=== PATIENT | female | born 1945 | race Caucasian/White ===

== ENCOUNTER → 2018-04-13 | Day surgery (SDC) | payer MEDICARE ==
--- NOTE | 2018-04-11 12:41 | Diagnostic Imaging Report ---
PROCEDURE: X-RAY CHEST, TWO VIEWS COMPARISON: None. INDICATIONS: PRE OPERATIVE CHEST X-RAY FOR UROLOGY FINDINGS: No focal airspace consolidation, pleural effusion, or pneumothorax. Left subclavian approach implantable cardiac device body projects over the left lateral chest wall. Leads project over the right atrium and right ventricle. Aortic valve prosthesis. Normal heart size. Tortuosity and atherosclerotic calcification of the thoracic aorta. No pulmonary edema. No acute osseous abnormality. CONCLUSION: No acute cardiopulmonary abnormality. Dictated by: Guanaco Tobar M.D. on 04/11/2018 at 12:43 Electronically approved by: Guanaco Tobar M.D. on 04/11/2018 at 12:43
[~2018-04-13] MED LIST: ADVIL100 MG; ASPIRIN81 MG; CEFTRIAXONE SOD 1 GM VIAL ONE; CLOPIDOGREL75 MG PO; CYMBALTA30 MG; DEXAMETHASONE SOD PHOS INJ 4 MG/ML VIAL ONE; FISH OIL 1,0001 EAC2; GENERLAC10 GM/15 M; IOPAMIDOL 610MG/1ML 300 MG/ML VIAL IV ONE; LIDOCAINE HCL 2% LOCAL INJ 5 ML SDV VIAL INJ ONE; ONDANSETRON HCL INJ 2 MG/ML VIAL ONE; PROPOFOL IV EMULSION 10 MG/ML 20 ML VIAL ONE; SEVOFLURANE INHAL SOLN 250 ML PEN BTL ONE; SINEMET 10-1001 EACH
--- OUTSIDE RECORDS SUMMARY | 2018-04-13 06:04 | XMS REPORT | Clinical Summary ---
Author Author KARIS [facility] Address Unknown Phone Unavailable Care Team Providers Care Order Runner Name Role Phone PCP Unavailable Allergies Active Allergy Reactions Severity Noted Date Comments Sulfa (Sulfonamide 10/18/2017 Antibiotics) Current Medications Prescription Sig. Disp. Refills Start End Date Status Date DULoxetine (CYMBALTA) 30 Take 30 mg by mouth Active MG capsule daily. bisacodyl (DULCOLAX) 5 mg Take 5 mg by mouth daily Active EC tablet as needed for Constipation. clopidogrel (PLAVIX) 75 Take 1 tablet (75 mg 30 tablet 3 12/30/19 Active mg tablet total) by mouth daily. 18 aspirin 81 MG chewable Take 1 tablet (81 mg 30 tablet 3 12/30/19 Active tablet total) by mouth daily. 18 bethanechol (URECHOLINE) Take 1 tablet (10 mg 0 01/09/01/09/20 Active 10 MG tablet total) by mouth 3 (three) 18 19 times daily. carbidopa-levodopa Take 1 tablet by mouth 3 0 01/09/20 20 Active (SINEMET) 25-100 mg per (three) times daily. 18 19 tablet metoprolol (LOPRESSOR) 25 Take 0.5 tablets (12.5 mg 0 01/09/ Active MG tablet total) by mouth daily. 18 19 tamsulosin (FLOMAX) 0.4 Take 1 capsule (0.4 mg 0 01/10/20 Active mg Cp24 24 hr capsule total) by mouth nightly. 18 carbidopa-levodopa Take 2 tablets by mouth 3 01/09/20 Discontin (PARCOPA) 25-100 mg per (three) times daily . 18 ued disintegrating tablet metoprolol (LOPRESSOR) 25 Take 0.5 tablets (12.5 mg 15 tablet 3 01/09/20 Discontin MG tablet total) by mouth 2 (two) 18 18 ued times daily. minocycline Take 1 capsule (100 mg 20 capsule 0 12/30/19 01/10/20 Discontin (MINOCIN,DYNACIN) 100 MG total) by mouth every 12 18 18 ued capsule (twelve) hours for 10 days. tamsulosin (FLOMAX) 0.4 Take 1 capsule (0.4 mg 0 01/09/20 01/10/20 Discontin mg Cp24 24 hr capsule total) by mouth daily. 18 18 ued Active Problems Problem Noted Date Aortic stenosis 12/29/2017 Essential hypertension 12/29/2017 Severe aortic stenosis Pacemaker Parkinson disease (HCC) Hypertension Encounters Date Type Specialty Care Team Description 01/15/2018 Office Visit Cardiology Ned Jacob, Post- operative state (Primary Dx) 12/29/2017 [facility] Cardiology Bradley Wright Essential hypertension - Encounter MD Merritt 01/10/2018 Rod Iqbal MD 12/29/2017 Orders Only General Internal Medicine 12/29/2017 Procedure Pass 12/29/2017 Surgery Bradley Wright TAVR / CHULA MCR - IP MD Merritt PROC ONLY 12/28/2017 Anesthesia Ventura Gaytan, Event AA 12/06/2017 Procedure Pass 11/02/2017 [facility] Cardiology Claudio Rendon MD Severe aortic stenosis Encounter (Primary Dx);Aortic valve insufficiency, etiology of cardiac valve disease unspecified;Dyspnea, unspecified type;Syncope and collapse;Pacemaker;[place] son disease (HCC) 11/02/2017 [facility] Radiology Claudio Rendon MD Aortic valve Encounter insufficiency, etiology of cardiac valve disease unspecified;Dyspnea, unspecified type;Syncope and collapse 11/02/2017 Hospital Radiology Claudio Rendon MD Aortic valve Encounter insufficiency, etiology of cardiac valve disease unspecified;Dyspnea, unspecified type;Syncope and collapse 11/01/2017 Outside Orders Central Scheduling Claudio Rendon MD Aortic valve insufficiency, etiology of cardiac valve disease unspecified (Primary Dx);Dyspnea, unspecified type;Syncope and collapse 10/19/2017 Office Visit Cardiology Juany Ventura, Nonrheumatic aortic valve stenosis (Primary Dx) 10/18/2017 Office Visit Cardiology Ned Jacob, Severe aortic stenosis;Pacemaker;[place] son disease (HCC);Essential hypertension after 04/12/2017 Immunizations Name Dates Previously Given Next Due Influenza High Dose 01/10/2018 Preservative Free IM Pneumococcal 01/10/2018 Polysaccharide (Pneumovax) Family History Medical History Relation Name Comments Stroke Mother Relation Name Status Comments Mother Social History Tobacco Use Types Packs/Day Years Used Date Never Smoker Smokeless Tobacco: Never Used Alcohol Use Drinks/Week oz/Week Comments No Sex Assigned at Date Recorded Not on file Last Filed Vital Signs Vital Sign Reading Time Taken Blood Pressure 122/57 01/15/2018 12:00 PM [employer]CH[employer] Pulse 85 01/15/2018 12:00 PM [employer] Temperature 36.3 C (97.4 F) 01/15/2018 12:00 PM [employer] Respiratory Rate 16 01/15/2018 12:00 PM [employer] Oxygen Saturation 99% 01/15/2018 12:00 PM [employer] Inhaled Oxygen - - Concentration Weight 93 kg (205 lb) 01/15/2018 12:00 PM [employer] Height 160 cm (5' 2.99") 01/15/2018 12:00 PM [employer] Body Mass Index 36.33 01/15/2018 12:00 PM [employer] Plan of Treatment Health Maintenance Due Date Last Done Comments INFLUENZA VACCINE 08/20/2018 01/10/2018 Implants Implanted Type Area Federal Law Clerk Device Expiration Model / Identifier Date Serial / Lot Mitchell Mil 3 Transcatheter Valves N/A: Aorta MITCHELL 08/25/2019 [id number] / Heart Valve [employer] [id number] / Implanted: Qty: 1 on 12/29/2017 by Bradley Wright MD Procedures Procedure Name Priority Date/Time Associated Diagnosis Comments TAVR / CHULA MCR - IP 12/29/2017 I35.1 PROC ONLY 7:30 AM [employer]RO[employer]CH[employer]IC Case Notes (1) CASE REQUEST, 6T OP. Special Needs FIRST CASE REQUEST after 04/12/2017 Results * RHYTHM STRIP - SCAN (01/25/2018 3:22 PM) Only the most recent of 3 results within the time period is included. * CBC with platelet count + automated diff (01/10/2018 5:35 AM) Only the most recent of 3 results within the time period is included. Component Value Ref Range WBC 7.9 3.5 - 10.5 K/ L RBC 3.47 (L) 3.93 - 5.22 M/ L Hemoglobin 10.5 (L) 11.2 - 15.7 GM/DL Hematocrit 32.3 (L) 34.1 - 44.9 % MCV 93.1 79.4 - 94.8 fL MCH 30.3 25.6 - 32.2 pg MCHC 32.5 32.2 - 35.5 GM/DL RDW 13.9 11.7 - 14.4 % Platelets 143 (L) 150 - 450 K/CU MM MPV 10.7 9.4 - 12.3 fL nRBC 0 0 - 0 /100 WBC % Neutros 57 % % Lymphs 31 % % Monos 8 % % Eos 4 % % Baso 1 % # Neutros 4.50 1.56 - 6.13 K/ L # Lymphs 2.44 1.18 - 3.74 K/ L # Monos 0.61 (H) 0.24 - 0.36 K/ L # Eos 0.28 0.04 - 0.36 K/ L # Baso 0.08 0.01 - 0.08 K/ L Immature 0 0 - 1 % Granulocytes-Relative Specimen Performing Laboratory Blood - Arm, [place] [address] * CBC with platelet count + automated diff (01/10/2018 5:35 AM) Only the most recent of 3 results within the time period is included. Specimen Performing Laboratory Blood Narrative The following orders were created for panel order CBC with platelet count + automated diff. Procedure Abnormality Status --------- - ------ CBC with platelet count ...[[id number]]AbnormalFinal result Please view results for these tests on the individual orders. * Basic Metabolic Panel (01/10/2018 5:35 AM) Only the most recent of 5 results within the time period is included. Component Value Ref Range Sodium 140 136 - 145 meq/L Potassium 4.1 3.5 - 5.1 meq/L Chloride 109 (H) 98 - 107 meq/L CO2 23 22 - 29 meq/L BUN 21 7 - 21 mg/dL Creatinine 0.73 0.57 - 1.25 mg/dL Glucose 90 70 - 105 mg/dL Calcium 9.2 8.4 - 10.2 mg/dL EGFR 78Comment: ESTIMATED GFR IS NOT ACCURATE mL/min/1.73 sq m CREATININE CLEARANCE IN PREDICTING GLOMERULAR FILTRATION RATE. ESTIMATED GFR IS NOT APPLICABLE FOR DIALYSIS PATIENTS. Specimen Performing Laboratory Blood - Arm, Right [address] [address] * POC-Glucose meter (01/08/2018 11:48 AM) Component Value Ref Range POC-Glucose Meter 108Comment: TESTED AT [address] 70 - 110 mg/[place] [address] Specimen Performing Laboratory Blood [address] [address] * CARDIAC CATH REPORT - SCAN (01/03/2018 8:30 PM) * ECHOCARDIOGRAM REPORT - SCAN (01/03/2018 7:20 AM) Only the most recent of 3 results within the time period is included. * Hemoglobin A1c (01/02/2018 6:06 PM) Component Value Ref Range Hemoglobin A1C 4.9 4.3 - 6.1 % Specimen Performing Laboratory Blood - Arm, Left [address] [address] * ECG 12 lead (01/01/2018 4:02 PM) Only the most recent of 2 results within the time period is included. Specimen Performing Laboratory GE MUSE Narrative Ventricular Rate 86 BPM Atrial Rate 86 BPM P-R Interval 172 ms QRS Duration 80 ms Q-T Interval 356 ms QTC Calculation(Bazett) 426 ms P [place] 29 degrees R [place] 0 degrees T [place] 17 degrees Normal sinus rhythm Normal ECG When compared with ECG of 29-Dec-2017 No significant changes Confirmed by Demetrice CID BASANT ([id number]) on 01/02/2018 4:50:27 PM Procedure Note Interface, External Ris In - 01/02/2018 4:50 PM [employer]RO[employer]CH[employer]IC Ventricular Rate 86 BPM Atrial Rate 86 BPM P-R Interval 172 ms QRS Duration 80 ms Q-T Interval 356 ms QTC Calculation(Bazett) 426 ms P [place] 29 degrees R [place] 0 degrees T [place] 17 degrees Normal sinus rhythm Normal ECG When compared with ECG of 29-Dec-2017 No significant changes Confirmed by Demetrice CID BASANT ([id number]) on 01/02/2018 4:50:27 PM * CBC (Hemogram only) (01/01/2018 4:52 AM) Only the most recent of 3 results within the time period is included. Component Value Ref Range WBC 8.6 3.5 - 10.5 K/ L RBC 3.26 (L) 3.93 - 5.22 M/ L Hemoglobin 10.1 (L) 11.2 - 15.7 GM/DL Hematocrit 30.2 (L) 34.1 - 44.9 % MCV 92.6 79.4 - 94.8 fL MCH 31.0 25.6 - 32.2 pg MCHC 33.4 32.2 - 35.5 GM/DL RDW 13.4 11.7 - 14.4 % Platelets 85 (L) 150 - 450 K/CU MM MPV 10.5 9.4 - 12.3 fL nRBC 0 0 - 0 /100 WBC Specimen Performing Laboratory Blood - Arm, [place] [address] * TRANSFUSION SERVICE REPORT - SCAN (12/30/2017 5:41 PM) * Transthoracic 2D echo w/ doppler (cw/pw/color) (12/30/2017 11:04 AM) Component Value Ref Range Ejection Fraction Specimen Performing Laboratory SLE ECHO HEARTLAB MKCKESSON CPACS Narrative Transthoracic Echocardiography Report (TTE) Demographics Patient NameCINDY LANGLEY Date of Study12/30/2017 PRAVEEN Gender Female Visit [id number] Race Number [id number] Number Date of 1945 Referring Frederick Boothe Age 72 year(s) 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 Clinical History HTN PACEMAKER SOB ANGINA POST AVR HGB 11.2 HCT 34.0 % Height: 63 inches Weight: 93.44 kg (206 lbs) BSA: 1.96 m^2 BMI: 36.49 kg/m^2 HR: 94 bpm BP: 127/61 mmHg Summary 1. The prosthetic AoV appears well-seated with normal function by Doppler. Prosthetic AoV systolic gradients are normal: peak/mean 17.6/ 9.35 mmHg. . 2. All of the LV segments contract normally Estimated LVEF by qualitative assessment is normal (>60%) . 3. No pericardial effusion is visualized Previous Study No prior exam available for comparison. Signature Findings Left Ventricle Mild concentric LV hypertrophy. The left ventricle is chamber size (by PSLAX dimension) is normal (female - LVIDd 3.8-5.2cm) . All of the LV segments contract normally . Septal motion is abnormal, likely related to prior cardiac surgery . Global LV systolic function normal . Estimated LVEF by qualitative assessment is normal (>60%) . Grade 1 diastolic dysfunction ( impaired relaxation and low-normal LA pressure). Left AtriumLA size is mildly enlarged (35-41 ml/m2) . Right VentricleThe right ventricular chamber size and systolic function are within normal limits. RV pacing wire is visualized . Right Atrium RA cavity size is normal . RA pacing wire is visualized . Aortic Valve A percutaneous (TAVR) biologic AoV prosthesis is visualized . The prosthetic AoV appears well- seated with normal function by Doppler. AoV dimensionless obstructive index (DOI)) is 0.84 . Prosthetic AoV systolic gradients are normal: peak/mean 17.6/ 9.35 mmHg. . A trace of aortic regurgitation. Mitral Valve Mild MV leaflet thickening. Tricuspid ValveA trace of tricuspid regurgitation. Estimated peak systolic PA pressure is 30-35 mmHg . Pulmonic Valve Normal PV structure and function. AortaAortic root size (SInus of Valsalva diameter) is normal . Proximal ascending aorta size is normal . PericardiumNo pericardial effusion is visualized. IVC/SVC/PA/PV/PleuralThe estimated RA pressure by IVC dynamics 5-10mmHg . Chambers/Structures Left Atrium LA Volume: 69.26 ml LA Area: 20.86 cm^2 LA Vol. Index: 35 ml/m^2 Left Ventricle LVIDd: 3.87 cm LV Septum Diastolic: 1.41 cm LV PW Diastolic: 1.27 cm LVOT Diameter: 1.91 cm Right Ventricle TAPSE: 2.3 cm Aorta Ao Root S of [place].: 2.98 cmAscending Aorta: 2.98 cm Doppler/Quantitative Measurements Mitral Valve MV Peak E-Wave: 0.83 m/sMV Peak A-Wave: 1.09 m/s E/A Ratio: 0.76 Peak Gradient: 2.77 mmHg Deceleration Time: 235 msec MV Malcom. Peak: Aortic Valve Peak Velocity: 2.1 m/s Mean Velocity: 1.44 m/s Peak Gradient: 17.6 mmHg Mean Gradient: 9.35 mmHg AV Area (continuity): 2.42 cm^2 AV VTI: 37.49 cm AV DVI: 0.84 LVOT Peak Velocity: 1.61 m/sPeak Gradient: 10.36 mmHg Mean Velocity: 1.13 m/sMean Gradient: 6.37 mmHg LVOT Diameter: 1.91 cm LVOT VTI: 31.63 cm LVOT Area: 2.87 cm^2 LVOT SV:90.58 ml LVOT CO: 8.51 l/minLVOT CI: 4.34 l/min/m^2 Tricuspid Valve TR Velocity: 2.5 m/s TR Gradient: 24.91 mmHg Procedure Note Interface, External Ris In - 12/31/2017 4:27 PM [employer]RO[employer]CH[employer]IC Transthoracic Echocardiography Report (TTE) Demographics Patient Name CINDY LANGLEY Date of Study 12/30/2017 PRAVEEN Gender Female Visit Number [id number] Race Room Number C626 Number Date of 1945 Referring Physician ASPEN Boothe Age 72 year(s) [employer] Welding Machine Operator Rosie Reno Roofing Foreman Ellen Fisher MD Procedure Type of Study TTE procedure:2DECHO W DOPPLER(CW/PW/COLOR) (KYLE) Indications:Initial post operative evaluation of prosthetic valve. Clinical History HTN PACEMAKER SOB ANGINA POST AVR HGB 11.2 HCT 34.0 % Height: 63 inches Weight: 93.44 kg (206 lbs) BSA: 1.96 m^2 BMI: 36.49 kg/m^2 HR: 94 bpm BP: 127/61 mmHg Summary 1. The prosthetic AoV appears well-seated with normal function by Doppler. Prosthetic AoV systolic gradients are normal: peak/mean 17.6/ 9.35 mmHg. . 2. All of the LV segments contract normally Estimated LVEF by qualitative assessment is normal (>60%) . 3. No pericardial effusion is visualized Previous Study No prior exam available for comparison. Signature Findings Left Ventricle Mild concentric LV hypertrophy. The left ventricle is chamber size (by PSLAX dimension) is normal (female - LVIDd 3.8-5.2cm) . All of the LV segments contract normally . Septal motion is abnormal, likely related to prior cardiac surgery . Global LV systolic function normal . Estimated LVEF by qualitative assessment is normal (>60%) . Grade 1 diastolic dysfunction (impaired relaxation and low-normal LA pressure). Left Atrium LA size is mildly enlarged (35-41 ml/m2) . Right Ventricle The right ventricular chamber size and systolic function are within normal limits. RV pacing wire is visualized . Right Atrium RA cavity size is normal . RA pacing wire is visualized . Aortic Valve A percutaneous (TAVR) biologic AoV prosthesis is visualized . The prosthetic AoV appears well-seated with normal function by Doppler. AoV dimensionless obstructive index (DOI)) is 0.84 . Prosthetic AoV systolic gradients are normal: peak/mean 17.6/ 9.35 mmHg. . A trace of aortic regurgitation. Mitral Valve Mild MV leaflet thickening. Tricuspid Valve A trace of tricuspid regurgitation. Estimated peak systolic PA pressure is 30-35 mmHg . Pulmonic Valve Normal PV structure and function. Aorta Aortic root size (SInus of Valsalva diameter) is normal . Proximal ascending aorta size is normal . Pericardium No pericardial effusion is visualized. IVC/SVC/PA/PV/Pleural The estimated RA pressure by IVC dynamics 5-10mmHg . Chambers/Structures Left Atrium LA Volume: 69.26 ml LA Area: 20.86 cm^2 LA Vol. Index: 35 ml/m^2 Left Ventricle LVIDd: 3.87 cm LV Septum Diastolic: 1.41 cm LV PW Diastolic: 1.27 cm LVOT Diameter: 1.91 cm Right Ventricle TAPSE: 2.3 cm Aorta Ao Root S of [place].: 2.98 cm Ascending Aorta: 2.98 cm Doppler/Quantitative Measurements Mitral Valve MV Peak E-Wave: 0.83 m/s MV Peak A-Wave: 1.09 m/s E/A Ratio: 0.76 Peak Gradient: 2.77 mmHg Deceleration Time: 235 msec MV Malcom. Peak: Aortic Valve Peak Velocity: 2.1 m/s Mean Velocity: 1.44 m/s Peak Gradient: 17.6 mmHg Mean Gradient: 9.35 mmHg AV Area (continuity): 2.42 cm^2 AV VTI: 37.49 cm AV DVI: 0.84 LVOT Peak Velocity: 1.61 m/s Peak Gradient: 10.36 mmHg Mean Velocity: 1.13 m/s Mean Gradient: 6.37 mmHg LVOT Diameter: 1.91 cm LVOT VTI: 31.63 cm LVOT Area: 2.87 cm^2 LVOT SV:90.58 ml LVOT CO: 8.51 l/min LVOT CI: 4.34 l/min/m^2 Tricuspid Valve TR Velocity: 2.5 m/s TR Gradient: 24.91 mmHg * POC ACTIVATED CLOTTING TIME (12/29/2017 12:57 PM) Only the most recent of 2 results within the time period is included. Component Value Ref Range Activated Clotting Time 109Comment: TESTED AT [facility] [address] [facility] [place] [address] Specimen Performing Laboratory Blood [facility] [address] [address] * Prepare RBC (12/29/2017 12:56 PM) Component Value Ref Range CROSSMATCH COMPATIBLE Unit ABO O Pos UNIT NUMBER [id number] Status RETURNED FROM ISSUE Blood Bank Product RED BLOOD CELLS PRODUCT CODE M7920Q16 CROSSMATCH COMPATIBLE Unit ABO O Pos UNIT NUMBER [id number] Status RETURNED FROM ISSUE Blood Bank Product RED BLOOD CELLS PRODUCT CODE [id number] CROSSMATCH COMPATIBLE Unit ABO O Pos UNIT NUMBER [id number] Status RETURNED FROM ISSUE Blood Bank Product RED BLOOD CELLS PRODUCT CODE [id number] CROSSMATCH COMPATIBLE Unit ABO O Pos UNIT NUMBER [id number] Status RETURNED FROM ISSUE Blood Bank Product RED BLOOD CELLS PRODUCT CODE [id number] Specimen Performing Laboratory [facility] [place] * Transesophageal echo (12/29/2017 8:05 AM) Only the most recent of 2 results within the time period is included. Component Value Ref Range Ejection Fraction Specimen Performing Laboratory SLE ECHO HEARTLAB MKCKESSON CPACS Narrative Transesophageal Echocardiography Report (JORDAN) Demographics Patient Name Giovanny LANGLEY of Study 12/29/2017 PRAVEEN [id number] Female Visit Number [id number] [id number] Room Number C626 Number Date of Birth1945Referring Physician Bradley Wright MD Age72 year(s)[employer] Welding Machine Operator Physician CHATA Colin Fellow Radha Cole Procedure Type of Study JORDAN procedure:TRANSESOPHAGEAL ECHO Indications:TAVR. Clinical History ANGINA AT REST,BRADYCARDIA,JERRY,HTN,PACEMAKER,PARKINSON DISEASE,,SOB Height: 63 inches Weight: 93.44 kg (206 lbs) BSA: 1.96 m^2 BMI: 36.49 kg/m^2 HR: 71 bpm BP: 132/62 mmHg Procedure Informed Consent Anesthesia consent obtained. JORDAN procedure notes The patient was counseled and informed consent was obtained. Topical and intravenous anesthesia was administered by anesthesia The esophagus was intubated without difficulty by anesthesia. The probe was passed and all standard echocardiographic views were obtained. The patient tolerated the procedure well.. Mallampati Score: 3. Anesthesia History Findings III : A pt with severe systemic disease that limits activity (history of angina pectoris, COPD, prior FL, CHF).. - See anesthesia record Summary Intra procedural JORDAN to guide TAVR procedure. Pre procedural JORDAN 1. Severe aortic stenosis with limited excursion. Peak gradient of 75 mmHg and mean of 38 mmHg. 2. Mild to moderate concentric LV hypertrophy. Normal overall left ventricular systolic function. LA size is enlarged . The right ventricular chamber size and systolic function are within normal limits. 3. Mild tricuspid regurgitation. Mild mitral regurgitation. Intra & Post Procedural JORDAN 1. Successfully deployed Mitchell Valve with no significant valvar or paravalvar regurgitation. The left coronary blood flow is preserved. 2. Stable right and left ventricular systolic function. 3. No evidence of pericardial effusion. Previous Study Compared to prior study dated 11/02/2017, there is no significant change (pre TAVR study). Signature Findings Rhythm/BPRegular sinus rhythm during the exam. Interventional JORDAN (cpt 08690) for guidance of percutaneous intracardiac procedure. 3D imaging (cpt 29408) rendering with interpretation was performed. Left Mild to moderate concentric LV hypertrophy. Normal overall Ventricleleft ventricular systolic function. Left AtriumLA size is enlarged . RightThe right ventricular chamber size and systolic function are Ventriclewithin normal limits. Right Atrium RA size is normal. Atrial Normal interatrial septum by available views. Septum Aortic Valve There is severe aortic stenosis as previously described. Peak gradient of 75 mmHg and mean of 38 mmHg. JORDAN guidance for TAVR Mitchell Valve deployment and assessment. TAVR valve is well seated in good position. With no significant valvar or paravalvar regurgitation. The left coronary blood flow is preserved. 3D imaging and reconstruction of the prosthetic aortic valve performed. Mitral Valve [id number] MV leaflet thickening. Mild mitral regurgitation. TricuspidTV structure is normal. ValveMild tricuspid regurgitation. Pulmonic PV is not well visualized. Valve AortaAortic root size (SInus of Valsalva diameter) is mildly dilated . PericardiumNo pericardial effusion is visualized. Chambers/Structures Left Ventricle LVOT Diameter: 2 cm Doppler/Quantitative Measurements Aortic Valve Peak Velocity: 4.36 m/sMean Velocity: 2.81 m/s Peak Gradient: 75.95 mmHgMean Gradient: 39.26 mmHg AV Area (continuity): 0.41 cm^2 AV VTI: 140.81 cm AV DVI: 0.13 LVOT Peak Velocity: 0.67 m/s Peak Gradient: 1.77 mmHg Mean Velocity: 0.49 m/s Mean Gradient: 1.06 mmHg LVOT Diameter: 2 cm LVOT VTI: 18.56 cm LVOT Area: 3.14 cm^2LVOT SV:58.28 ml LVOT CO: 4.14 l/min LVOT CI: 2.11 l/min/m^2 Procedure Note Interface, External Ris In - 01/02/2018 7:04 PM [employer]ILROAD TR[employer] MECHANIC Transesophageal Echocardiography Report (JORDAN) Demographics Patient Name CINDY LANGLEY Date of Study 12/29/2017 PRAVEEN Gender Female Visit Number [id number] Race Room Number C626 Number Date of 1945 Referring Physician Bradley Wright MD Age 72 year(s) [employer] Welding Machine Operator Interpreting Physician CHATA Heller Fellow Radha Cole Procedure Type of Study JORDAN procedure:TRANSESOPHAGEAL ECHO Indications:TAVR. Clinical History ANGINA AT REST,BRADYCARDIA,JERRY,HTN,PACEMAKER,PARKINSON DISEASE,,SOB Height: 63 inches Weight: 93.44 kg (206 lbs) BSA: 1.96 m^2 BMI: 36.49 kg/m^2 HR: 71 bpm BP: 132/62 mmHg Procedure Informed Consent Anesthesia consent obtained. JORDAN procedure notes The patient was counseled and informed consent was obtained. Topical and intravenous anesthesia was administered by anesthesia The esophagus was intubated without difficulty by anesthesia. The probe was passed and all standard echocardiographic views were obtained. The patient tolerated the procedure well.. Mallampati Score: 3. Anesthesia History Findings III : A pt with severe systemic disease that limits activity (history of angina pectoris, COPD, prior FL, CHF).. - See anesthesia record Summary Intra procedural JORDAN to guide TAVR procedure. Pre procedural JORDAN 1. Severe aortic stenosis with limited excursion. Peak gradient of 75 mmHg and mean of 38 mmHg. 2. Mild to moderate concentric LV hypertrophy. Normal overall left ventricular systolic function. LA size is enlarged . The right ventricular chamber size and systolic function are within normal limits. 3. Mild tricuspid regurgitation. Mild mitral regurgitation. Intra & Post Procedural JORDAN 1. Successfully deployed Mitchell Valve with no significant valvar or paravalvar regurgitation. The left coronary blood flow is preserved. 2. Stable right and left ventricular systolic function. 3. No evidence of pericardial effusion. Previous Study Compared to prior study dated 11/02/2017, there is no significant change (pre TAVR study). Signature Findings Rhythm/BP Regular sinus rhythm during the exam. Interventional JORDAN (cpt 10861) for guidance of percutaneous intracardiac procedure. 3D imaging (cpt 99654) rendering with interpretation was performed. Left Mild to moderate concentric LV hypertrophy. Normal overall Ventricle left ventricular systolic function. Left Atrium LA size is enlarged . Right The right ventricular chamber size and systolic function are Ventricle within normal limits. Right Atrium RA size is normal. Atrial Normal interatrial septum by available views. Septum Aortic Valve There is severe aortic stenosis as previously described. Peak gradient of 75 mmHg and mean of 38 mmHg. JORDAN guidance for TAVR Mitchell Valve deployment and assessment. TAVR valve is well seated in good position. With no significant valvar or paravalvar regurgitation. The left coronary blood flow is preserved. 3D imaging and reconstruction of the prosthetic aortic valve performed. Mitral Valve [id number] MV leaflet thickening. Mild mitral regurgitation. Tricuspid TV structure is normal. Valve Mild tricuspid regurgitation. Pulmonic PV is not well visualized. Valve Aorta Aortic root size (SInus of Valsalva diameter) is mildly dilated . Pericardium No pericardial effusion is visualized. Chambers/Structures Left Ventricle LVOT Diameter: 2 cm Doppler/Quantitative Measurements Aortic Valve Peak Velocity: 4.36 m/s Mean Velocity: 2.81 m/s Peak Gradient: 75.95 mmHg Mean Gradient: 39.26 mmHg AV Area (continuity): 0.41 cm^2 AV VTI: 140.81 cm AV DVI: 0.13 LVOT Peak Velocity: 0.67 m/s Peak Gradient: 1.77 mmHg Mean Velocity: 0.49 m/s Mean Gradient: 1.06 mmHg LVOT Diameter: 2 cm LVOT VTI: 18.56 cm LVOT Area: 3.14 cm^2 LVOT SV:58.28 ml LVOT CO: 4.14 l/min LVOT CI: 2.11 l/min/m^2 * Type and screen, automated (12/29/2017 6:40 AM) Component Value Ref Range ABO/RH AUTOMATED (BEAKER) O POSITIVE Ab Scrn NEGATIVE Specimen Performing Laboratory Blood [address] [address] * Prothrombin time/INR (12/29/2017 6:40 AM) Component Value Ref Range Protime 14.1 11.7 - 14.7 seconds INR 1.1 <=5.9 Specimen Performing Laboratory Blood [address] [address] Narrative RECOMMENDED COUMADIN/WARFARIN INR THERAPY RANGES STANDARD DOSE: 2.0 - 3.0 Includes: PROPHYLAXIS for venous thrombosis, systemic embolization; TREATMENT for venous thrombosis and/or pulmonary embolus. HIGH RISK: Target INR is 2.5-3.5 for patients with mechanical heart valves. * B-type Natriuretic Factor (BNP) (12/29/2017 6:40 AM) Component Value Ref Range BNP 37 0 - 100 pg/mL Specimen Performing Laboratory Blood [address] [address] * Comprehensive metabolic panel (12/29/2017 6:40 AM) Component Value Ref Range Protein, Total 7.4 6.0 - 8.3 gm/dL Albumin 3.7 3.5 - 5.0 g/dL Alkaline Phosphatase 70 40 - 150 U/L Total Bilirubin 0.6 0.2 - 1.2 mg/dL Sodium 140 136 - 145 meq/L Potassium 4.2 3.5 - 5.1 meq/L Chloride 108 (H) 98 - 107 meq/L CO2 23 22 - 29 meq/L BUN 14 7 - 21 mg/dL Creatinine 0.83 0.57 - 1.25 mg/dL Glucose 106 (H) 70 - 105 mg/dL Calcium 9.8 8.4 - 10.2 mg/dL AST 14 5 - 34 U/L ALT <6 (L) 6 - 55 U/L EGFR 68Comment: ESTIMATED GFR IS NOT ACCURATE mL/min/1.73 sq m CREATININE CLEARANCE IN PREDICTING GLOMERULAR FILTRATION RATE. ESTIMATED GFR IS NOT APPLICABLE FOR DIALYSIS PATIENTS. Specimen Performing Laboratory [place] [address] * CTA chest (11/02/2017 1:17 PM) Specimen Performing Laboratory Induction Manager Narrative Addendum Begins REPORT STATUS:A Addendum: November 03, 2017 at 1455 hours I have reviewed the CT images for this study and I concur with the nonvascular imaging findings as dictated. Signed: Rolando August MD Report Verified Date/Time:11/03/2017 14:51:20 Reading Location: [place] [address] Angio Body Reading Room Addendum Ends FINAL REPORT CT angiography of the thoracoabdominal aorta and pelvic arteries, 02 November 2017 INDICATION: This is a 72 years old female, with a diagnosis of aortic stenosis presents for preprocedure TAVR assessment. This study is performed in attempt to avoid invasive procedure. TECHNIQUE: Spiral acquisition before and during contrast administration using a Corey multidetector CT scanner. Multiplanar 3-D volume rendering reformation was performed using independent workstation interactively by the dictating physician and the 3-D specialist. The amount of contrast used and method of administration can be found in scanned Epic document. This exam was performed according to our departmental dose-optimisation programme, which includes automated exposure control, adjustment of the mA and/or kV according to patient size and/or use of iterative reconstruction technique. Dose modulation, iterative reconstruction, and/or weight based adjustment of the mA/kV was utilized to reduce the radiation dose to as low as reasonably achievable. FINDINGS: VASCULAR: Electronic device identified in left upper chest with cardiac leads identified in the right-sided cardiac chambers. In the topogram, this represents a dual-chamber pacemaker. The central pulmonary artery is normal in calibre. The cardiac chamber demonstrate normal atrioventricular and ventriculoarterial concordance, systemic and pulmonary venous return. The left ventricle is normal in size. Left atrial enlargement is identified. Coronary artery origins are normal. No obvious mitral annular calcification is seen. Patient has a diagnosis of aortic stenosis. Aortic valve is tricuspid. Agatston score is approximately 1283. Aortic valve area is approximately 52 sq mm. The location of aortic valvular calcification can be seen in reformatted data sent to PACS. Regarding the thoracic aorta, only minimal calcification is seen in the aortic root and remainder of the ascending thoracic aorta is free of calcification. The transverse arch and descending thoracic aorta only have mild calcification identified in the infrarenal abdominal aorta also mild calcific atherosclerosis seen only. No acute aortic pathology is identified including dissection or contained rupture. The common iliac, external iliac, common femoral, and the visualised superficial femoral arteries, bilaterally, widely patent. The coeliac axis is widely patent giving rise to the hepatic and splenic arteries. The SMA is widely patent. The NESSA is widely patent. Single left and right renal arteries are seen with some eccentric nonobstructive calcific atherosclerosis identified. Single left and right renal veins are seen draining normally into the IVC. Arch vessel branching pattern is normal and the visualized arch vessels are seen to be widely patent proximally. Some eccentric calcification that is nonobstructive is seen in the left subclavian artery in the left subclavian artery image 23 measuring approximately 6 to 7 mm in diameter. Minimal nonobstructive calcification seen in the right subclavian artery and the right subclavian artery measures 6 to 7 mm in diameter. Dimensions that may be helpful for TAVR as as follows: Only minimal calcification is seen in the aortic root and remainder of the ascending thoracic aorta is free of calcification. The major and minor aortic annulus diameter measures 24.9 and 20.4 mm, respectively. The aortic annulus perimeter measured 73 mm and the cross-sectional area measures 416 mm2. The aortic annulus diameter at the traditional LVOT and coronal LVOT measures 21.4 and 22.3 mm, respectively. For reference purpose, per MITCHELL S3 brochure, recommendation are as follows: CT area between 273 to 345 mm2 (20 mm valve); 338 to 430 mm2 (23 mm valve); 430 to 546 mm2 (26 mm valve); 540 to 683 mm2 (29 mm valve). For reference purpose, per CoreValve Evolut R aysha, recommendation are as follows: CT perimeter between 56.5-62.8 mm (23 mm valve); 62.8-72.3 mm (26 mm valve); 72.3-81.7 mm (29 mm valve); and 81.7-94.2. mm (34 mm valve). Agatston Score is 1283.Planimetry, the aortic valve area is approximately 52 sq mm. The sinus of Valsalva height, RCC (systole): 13.0 mm The sinus of Valsalva height, LCC (systole): 11.3 mm The sinus of Valsalva diameter, RCC (systole): 26.9 mm The sinus of Valsalva diameter, LCC (systole): 29.4 mm The sinus of Valsalva diameter, NCC (systole): 29.4 mm The sinotubular junction measures approximately 24.5 x 25.1 mm The aortic root angulation measures 40.8 degrees. The angle of delivery is BELIZEAN 7 CLOUD INFRASTRUCTURE ARCHITECT 1. The minimal and perpendicular abdominal aortic diameter measure 15.4 and 16.4 mm, respectively. There is no evidence of thoracoabdominal aortic aneurysm or stent placement present. The minimum and the perpendicular left common iliac artery measures 8.9 and 9.8 mm, respectively with moderatetortuosity and no calcific atherosclerosis present. The minimum and the perpendicular left external iliac artery measures 6.2 and 7.3 mm, respectively with at least moderatetortuosity and nocalcific atherosclerosis present. The minimum and the perpendicular left femoral artery measures 8.1 and 3.3 mm, respectively with notortuosity and no calcific atherosclerosis present. The minimum and the perpendicular right common iliac artery measures 8.1 and 8.5 mm, respectively with minimaltortuosity and no calcific atherosclerosis present. The minimum and the perpendicular rightexternal iliac artery measures 6.4 and 7.4 mm, respectively with at least moderatetortuosity and nocalcific atherosclerosis present. The minimum and the perpendicular right femoral artery measures 6.9 and 8.2 mm, respectively with notortuosity and no calcific atherosclerosis present. NONVASCULAR: The visualised thyroid gland appears unremarkable. Small hypodensity less than 1 cm is seen at image 50 of the right thyroid lobe, not clinically significant. In the lung windows, no obvious endobronchial lesion is seen and no pleural effusions identified. Calcified lymph nodes identified, indicating prior granulomatous disease. In the lung windows, no obvious endobronchial lesion is seen and no pleural effusions identified. Some dependent changes are seen. Some subsegmental atelectatic changes are noted. In the right apex, image 16, scarring/nodule is identified measure 6 mm in diameter. A 5 mm juxtapleural nodule is identified in the right upper lobe at image 77, and a tiny calcified granuloma is identified in the upper segment of the right lower lobe at image 155. No other nodule is seen. No prior examination is available for comparison. In the abdomen, the liver and spleen appears unremarkable. The liver edge is smooth. No abnormal enhancing structure is identified. A simple cyst is identified in the liver, with no enhancement after contrast administration. A splenule is present. The adrenal glands are unremarkable. Gallstones are seen in the gallbladder with no wall thickening identified. The pancreas appears unremarkable. No acute renal pathology is seen and no hydronephrosis or perirenal fluid collection is identified. Bowel is not well assessed by CT angiography as enteric contrast is not given. No obvious bowel dilation is identified. The bladder appears unremarkable. The uterus is present. No obvious abnormal adnexal masses seen though CT is not optimized in the assessment of pelvic gynecological structures. No acute bony pathology is seen. Some degenerative changes are noted. CONCLUSIONS: 1.Patient has a diagnosis of aortic stenosis. Aortic valve is tricuspid. Agatston score is over 1200. Aortic valve area is approximately 51 sq mm. No mitral annular calcification is seen. Only minimal calcification seen in the aortic root. Dimensions that may be helpful for TAVR as described above. 2.The central pulmonary artery is normal in calibre. Evidence of prior granulomatous disease. No acute pulmonary pathology is identified. Small pulmonary nodules are seen as described above. If no outside facility is available for comparison, one can consider follow-up examination in 6-12 months time to document stability. 3. Other findings as described above. 4. An addendum will be dictated by the Etl Architect Radiologist regarding the nonvascular findings. Signed: Reed Stockton MD Report Verified Date/Time:11/02/2017 16:59:26 Reading Location: [facility] P047 Cardiology MRI Procedure Note Interface, External Ris In - 11/03/2017 2:53 PM RAILROAD TRACK MECHANIC Addendum Begins REPORT STATUS:A Addendum: November 03, 2017 at 1455 hours I have reviewed the CT images for this study and I concur with the nonvascular imaging findings as dictated. Signed: Rolando August MD Report Verified Date/Time: 11/03/2017 14:51:20 Reading Location: [facility] P048 Angio Body Reading Room Addendum Ends FINAL REPORT CT angiography of the thoracoabdominal aorta and pelvic arteries, 02 November 2017 INDICATION: This is a 72 years old female, with a diagnosis of aortic stenosis presents for preprocedure TAVR assessment. This study is performed in attempt to avoid invasive procedure. TECHNIQUE: Spiral acquisition before and during contrast administration using a Corey multidetector CT scanner. Multiplanar 3-D volume rendering reformation was performed using independent workstation interactively by the dictating physician and the 3-D specialist. The amount of contrast used and method of administration can be found in scanned Epic document. This exam was performed according to our departmental dose-optimisation programme, which includes automated exposure control, adjustment of the mA and/or kV according to patient size and/or use of iterative reconstruction technique. Dose modulation, iterative reconstruction, and/or weight based adjustment of the mA/kV was utilized to reduce the radiation dose to as low as reasonably achievable. FINDINGS: VASCULAR: Electronic device identified in left upper chest with cardiac leads identified in the right-sided cardiac chambers. In the topogram, this represents a dual-chamber pacemaker. The central pulmonary artery is normal in calibre. The cardiac chamber demonstrate normal atrioventricular and ventriculoarterial concordance, systemic and pulmonary venous return. The left ventricle is normal in size. Left atrial enlargement is identified. Coronary artery origins are normal. No obvious mitral annular calcification is seen. Patient has a diagnosis of aortic stenosis. Aortic valve is tricuspid. Agatston score is approximately 1283. Aortic valve area is approximately 52 sq mm. The location of aortic valvular calcification can be seen in reformatted data sent to PACS. Regarding the thoracic aorta, only minimal calcification is seen in the aortic root and remainder of the ascending thoracic aorta is free of calcification. The transverse arch and descending thoracic aorta only have mild calcification identified in the infrarenal abdominal aorta also mild calcific atherosclerosis seen only. No acute aortic pathology is identified including dissection or contained rupture. The common iliac, external iliac, common femoral, and the visualised superficial femoral arteries, bilaterally, widely patent. The coeliac axis is widely patent giving rise to the hepatic and splenic arteries. The SMA is widely patent. The NESSA is widely patent. Single left and right renal arteries are seen with some eccentric nonobstructive calcific atherosclerosis identified. Single left and right renal veins are seen draining normally into the IVC. Arch vessel branching pattern is normal and the visualized arch vessels are seen to be widely patent proximally. Some eccentric calcification that is nonobstructive is seen in the left subclavian artery in the left subclavian artery image 23 measuring approximately 6 to 7 mm in diameter. Minimal nonobstructive calcification seen in the right subclavian artery and the right subclavian artery measures 6 to 7 mm in diameter. Dimensions that may be helpful for TAVR as as follows: Only minimal calcification is seen in the aortic root and remainder of the ascending thoracic aorta is free of calcification. The major and minor aortic annulus diameter measures 24.9 and 20.4 mm, respectively. The aortic annulus perimeter measured 73 mm and the cross-sectional area measures 416 mm2. The aortic annulus diameter at the traditional LVOT and coronal LVOT measures 21.4 and 22.3 mm, respectively. For reference purpose, per MITCHELL S3 brochure, recommendation are as follows: CT area between 273 to 345 mm2 (20 mm valve); 338 to 430 mm2 (23 mm valve); 430 to 546 mm2 (26 mm valve); 540 to 683 mm2 (29 mm valve). For reference purpose, per CoreValve Evolut R brochure, recommendation are as follows: CT perimeter between 56.5-62.8 mm (23 mm valve); 62.8-72.3 mm (26 mm valve); 72.3-81.7 mm (29 mm valve); and 81.7-94.2. mm (34 mm valve). Agatston Score is 1283. Planimetry, the aortic valve area is approximately 52 sq mm. The sinus of Valsalva height, RCC (systole): 13.0 mm The sinus of Valsalva height, LCC (systole): 11.3 mm The sinus of Valsalva diameter, RCC (systole): 26.9 mm The sinus of Valsalva diameter, LCC (systole): 29.4 mm The sinus of Valsalva diameter, NCC (systole): 29.4 mm The sinotubular junction measures approximately 24.5 x 25.1 mm The aortic root angulation measures 40.8 degrees. The angle of delivery is BELIZEAN 7 CLOUD INFRASTRUCTURE ARCHITECT 1. The minimal and perpendicular abdominal aortic diameter measure 15.4 and 16.4 mm, respectively. There is no evidence of thoracoabdominal aortic aneurysm or stent placement present. The minimum and the perpendicular left common iliac artery measures 8.9 and 9.8 mm, respectively with moderate tortuosity and no calcific atherosclerosis present. The minimum and the perpendicular left external iliac artery measures 6.2 and 7.3 mm, respectively with at least moderate tortuosity and no calcific atherosclerosis present. The minimum and the perpendicular left femoral artery measures 8.1 and 3.3 mm, respectively with no tortuosity and no calcific atherosclerosis present. The minimum and the perpendicular right common iliac artery measures 8.1 and 8.5 mm, respectively with minimal tortuosity and no calcific atherosclerosis present. The minimum and the perpendicular right external iliac artery measures 6.4 and 7.4 mm, respectively with at least moderate tortuosity and no calcific atherosclerosis present. The minimum and the perpendicular right femoral artery measures 6.9 and 8.2 mm, respectively with no tortuosity and no calcific atherosclerosis present. NONVASCULAR: The visualised thyroid gland appears unremarkable. Small hypodensity less than 1 cm is seen at image 50 of the right thyroid lobe, not clinically significant. In the lung windows, no obvious endobronchial lesion is seen and no pleural effusions identified. Calcified lymph nodes identified, indicating prior granulomatous disease. In the lung windows, no obvious endobronchial lesion is seen and no pleural effusions identified. Some dependent changes are seen. Some subsegmental atelectatic changes are noted. In the right apex, image 16, scarring/nodule is identified measure 6 mm in diameter. A 5 mm juxtapleural nodule is identified in the right upper lobe at image 77, and a tiny calcified granuloma is identified in the upper segment of the right lower lobe at image 155. No other nodule is seen. No prior examination is available for comparison. In the abdomen, the liver and spleen appears unremarkable. The liver edge is smooth. No abnormal enhancing structure is identified. A simple cyst is identified in the liver, with no enhancement after contrast administration. A splenule is present. The adrenal glands are unremarkable. Gallstones are seen in the gallbladder with no wall thickening identified. The pancreas appears unremarkable. No acute renal pathology is seen and no hydronephrosis or perirenal fluid collection is identified. Bowel is not well assessed by CT angiography as enteric contrast is not given. No obvious bowel dilation is identified. The bladder appears unremarkable. The uterus is present. No obvious abnormal adnexal masses seen though CT is not optimized in the assessment of pelvic gynecological structures. No acute bony pathology is seen. Some degenerative changes are noted. CONCLUSIONS: 1. Patient has a diagnosis of aortic stenosis. Aortic valve is tricuspid. Agatston score is over 1200. Aortic valve area is approximately 51 sq mm. No mitral annular calcification is seen. Only minimal calcification seen in the aortic root. Dimensions that may be helpful for TAVR as described above. 2. The central pulmonary artery is normal in calibre. Evidence of prior granulomatous disease. No acute pulmonary pathology is identified. Small pulmonary nodules are seen as described above. If no outside facility is available for comparison, one can consider follow-up examination in 6-12 months time to document stability. 3. Other findings as described above. 4. An addendum will be dictated by the Etl Architect Radiologist regarding the nonvascular findings. Signed: Reed Stockton MD Report Verified Date/Time: 11/02/2017 16:59:26 Reading Location: [place] [id number] Cardiology MRI * CTA abdomen & pelvis (11/02/2017 1:17 PM) Specimen Performing Laboratory Induction Manager Narrative Addendum Begins REPORT STATUS:A Addendum: November 03, 2017 at 1455 hours I have reviewed the CT images for this study and I concur with the nonvascular imaging findings as dictated. Signed: Rolando August MD Report Verified Date/Time:11/03/2017 14:51:20 Reading Location: [facility] P048 Angio Body Reading Room Addendum Ends FINAL REPORT CT angiography of the thoracoabdominal aorta and pelvic arteries, 02 November 2017 INDICATION: This is a 72 years old female, with a diagnosis of aortic stenosis presents for preprocedure TAVR assessment. This study is performed in attempt to avoid invasive procedure. TECHNIQUE: Spiral acquisition before and during contrast administration using a Corey multidetector CT scanner. Multiplanar 3-D volume rendering reformation was performed using independent workstation interactively by the dictating physician and the 3-D specialist. The amount of contrast used and method of administration can be found in scanned Epic document. This exam was performed according to our departmental dose-optimisation programme, which includes automated exposure control, adjustment of the mA and/or kV according to patient size and/or use of iterative reconstruction technique. Dose modulation, iterative reconstruction, and/or weight based adjustment of the mA/kV was utilized to reduce the radiation dose to as low as reasonably achievable. FINDINGS: VASCULAR: Electronic device identified in left upper chest with cardiac leads identified in the right-sided cardiac chambers. In the topogram, this represents a dual-chamber pacemaker. The central pulmonary artery is normal in calibre. The cardiac chamber demonstrate normal atrioventricular and ventriculoarterial concordance, systemic and pulmonary venous return. The left ventricle is normal in size. Left atrial enlargement is identified. Coronary artery origins are normal. No obvious mitral annular calcification is seen. Patient has a diagnosis of aortic stenosis. Aortic valve is tricuspid. Agatston score is approximately 1283. Aortic valve area is approximately 52 sq mm. The location of aortic valvular calcification can be seen in reformatted data sent to PACS. Regarding the thoracic aorta, only minimal calcification is seen in the aortic root and remainder of the ascending thoracic aorta is free of calcification. The transverse arch and descending thoracic aorta only have mild calcification identified in the infrarenal abdominal aorta also mild calcific atherosclerosis seen only. No acute aortic pathology is identified including dissection or contained rupture. The common iliac, external iliac, common femoral, and the visualised superficial femoral arteries, bilaterally, widely patent. The coeliac axis is widely patent giving rise to the hepatic and splenic arteries. The SMA is widely patent. The NESSA is widely patent. Single left and right renal arteries are seen with some eccentric nonobstructive calcific atherosclerosis identified. Single left and right renal veins are seen draining normally into the IVC. Arch vessel branching pattern is normal and the visualized arch vessels are seen to be widely patent proximally. Some eccentric calcification that is nonobstructive is seen in the left subclavian artery in the left subclavian artery image 23 measuring approximately 6 to 7 mm in diameter. Minimal nonobstructive calcification seen in the right subclavian artery and the right subclavian artery measures 6 to 7 mm in diameter. Dimensions that may be helpful for TAVR as as follows: Only minimal calcification is seen in the aortic root and remainder of the ascending thoracic aorta is free of calcification. The major and minor aortic annulus diameter measures 24.9 and 20.4 mm, respectively. The aortic annulus perimeter measured 73 mm and the cross-sectional area measures 416 mm2. The aortic annulus diameter at the traditional LVOT and coronal LVOT measures 21.4 and 22.3 mm, respectively. For reference purpose, per [employer] S3 brochure, recommendation are as follows: CT area between 273 to 345 mm2 (20 mm valve); 338 to 430 mm2 (23 mm valve); 430 to 546 mm2 (26 mm valve); 540 to 683 mm2 (29 mm valve). For reference purpose, per [employer] R brochure, recommendation are as follows: CT perimeter between 56.5-62.8 mm (23 mm valve); 62.8-72.3 mm (26 mm valve); 72.3-81.7 mm (29 mm valve); and 81.7-94.2. mm (34 mm valve). Agatston Score is 1283.Planimetry, the aortic valve area is approximately 52 sq mm. The sinus of Valsalva height, RCC (systole): 13.0 mm The sinus of Valsalva height, LCC (systole): 11.3 mm The sinus of Valsalva diameter, RCC (systole): 26.9 mm The sinus of Valsalva diameter, LCC (systole): 29.4 mm The sinus of Valsalva diameter, NCC (systole): 29.4 mm The sinotubular junction measures approximately 24.5 x 25.1 mm The aortic root angulation measures 40.8 degrees. The angle of delivery is BELIZEAN 7 CLOUD INFRASTRUCTURE ARCHITECT 1. The minimal and perpendicular abdominal aortic diameter measure 15.4 and 16.4 mm, respectively. There is no evidence of thoracoabdominal aortic aneurysm or stent placement present. The minimum and the perpendicular left common iliac artery measures 8.9 and 9.8 mm, respectively with moderatetortuosity and no calcific atherosclerosis present. The minimum and the perpendicular left external iliac artery measures 6.2 and 7.3 mm, respectively with at least moderatetortuosity and nocalcific atherosclerosis present. The minimum and the perpendicular left femoral artery measures 8.1 and 3.3 mm, respectively with notortuosity and no calcific atherosclerosis present. The minimum and the perpendicular right common iliac artery measures 8.1 and 8.5 mm, respectively with minimaltortuosity and no calcific atherosclerosis present. The minimum and the perpendicular rightexternal iliac artery measures 6.4 and 7.4 mm, respectively with at least moderatetortuosity and nocalcific atherosclerosis present. The minimum and the perpendicular right femoral artery measures 6.9 and 8.2 mm, respectively with notortuosity and no calcific atherosclerosis present. NONVASCULAR: The visualised thyroid gland appears unremarkable. Small hypodensity less than 1 cm is seen at image 50 of the right thyroid lobe, not clinically significant. In the lung windows, no obvious endobronchial lesion is seen and no pleural effusions identified. Calcified lymph nodes identified, indicating prior granulomatous disease. In the lung windows, no obvious endobronchial lesion is seen and no pleural effusions identified. Some dependent changes are seen. Some subsegmental atelectatic changes are noted. In the right apex, image 16, scarring/nodule is identified measure 6 mm in diameter. A 5 mm juxtapleural nodule is identified in the right upper lobe at image 77, and a tiny calcified granuloma is identified in the upper segment of the right lower lobe at image 155. No other nodule is seen. No prior examination is available for comparison. In the abdomen, the liver and spleen appears unremarkable. The liver edge is smooth. No abnormal enhancing structure is identified. A simple cyst is identified in the liver, with no enhancement after contrast administration. A splenule is present. The adrenal glands are unremarkable. Gallstones are seen in the gallbladder with no wall thickening identified. The pancreas appears unremarkable. No acute renal pathology is seen and no hydronephrosis or perirenal fluid collection is identified. Bowel is not well assessed by CT angiography as enteric contrast is not given. No obvious bowel dilation is identified. The bladder appears unremarkable. The uterus is present. No obvious abnormal adnexal masses seen though CT is not optimized in the assessment of pelvic gynecological structures. No acute bony pathology is seen. Some degenerative changes are noted. CONCLUSIONS: 1.Patient has a diagnosis of aortic stenosis. Aortic valve is tricuspid. Agatston score is over 1200. Aortic valve area is approximately 51 sq mm. No mitral annular calcification is seen. Only minimal calcification seen in the aortic root. Dimensions that may be helpful for TAVR as described above. 2.The central pulmonary artery is normal in calibre. Evidence of prior granulomatous disease. No acute pulmonary pathology is identified. Small pulmonary nodules are seen as described above. If no outside facility is available for comparison, one can consider follow-up examination in 6-12 months time to document stability. 3. Other findings as described above. 4. An addendum will be dictated by the [employer] Architect Radiologist regarding the nonvascular findings. Signed: Reed Stockton MD Report Verified Date/Time:11/02/2017 16:59:26 Reading Location: [place] [address] Cardiology MRI Procedure Note Interface, External Ris In - 11/03/2017 2:53 PM [employer] Addendum Begins REPORT STATUS:A Addendum: November 03, 2017 at 1455 hours I have reviewed the CT images for this study and I concur with the nonvascular imaging findings as dictated. Signed: Rolando August MD Report Verified Date/Time: 11/03/2017 14:51:20 Reading Location: [place] [id number] Angio Body Reading Room Addendum Ends FINAL REPORT CT angiography of the thoracoabdominal aorta and pelvic arteries, 02 November 2017 INDICATION: This is a 72 years old female, with a diagnosis of aortic stenosis presents for preprocedure TAVR assessment. This study is performed in attempt to avoid invasive procedure. TECHNIQUE: Spiral acquisition before and during contrast administration using a Corey multidetector CT scanner. Multiplanar 3-D volume rendering reformation was performed using independent workstation interactively by the dictating physician and the 3-D specialist. The amount of contrast used and method of administration can be found in scanned Epic document. This exam was performed according to our departmental dose-optimisation programme, which includes automated exposure control, adjustment of the mA and/or kV according to patient size and/or use of iterative reconstruction technique. Dose modulation, iterative reconstruction, and/or weight based adjustment of the mA/kV was utilized to reduce the radiation dose to as low as reasonably achievable. FINDINGS: VASCULAR: Electronic device identified in left upper chest with cardiac leads identified in the right-sided cardiac chambers. In the topogram, this represents a dual-chamber pacemaker. The central pulmonary artery is normal in calibre. The cardiac chamber demonstrate normal atrioventricular and ventriculoarterial concordance, systemic and pulmonary venous return. The left ventricle is normal in size. Left atrial enlargement is identified. Coronary artery origins are normal. No obvious mitral annular calcification is seen. Patient has a diagnosis of aortic stenosis. Aortic valve is tricuspid. Agatston score is approximately 1283. Aortic valve area is approximately 52 sq mm. The location of aortic valvular calcification can be seen in reformatted data sent to PACS. Regarding the thoracic aorta, only minimal calcification is seen in the aortic root and remainder of the ascending thoracic aorta is free of calcification. The transverse arch and descending thoracic aorta only have mild calcification identified in the infrarenal abdominal aorta also mild calcific atherosclerosis seen only. No acute aortic pathology is identified including dissection or contained rupture. The common iliac, external iliac, common femoral, and the visualised superficial femoral arteries, bilaterally, widely patent. The coeliac axis is widely patent giving rise to the hepatic and splenic arteries. The SMA is widely patent. The NESSA is widely patent. Single left and right renal arteries are seen with some eccentric nonobstructive calcific atherosclerosis identified. Single left and right renal veins are seen draining normally into the IVC. Arch vessel branching pattern is normal and the visualized arch vessels are seen to be widely patent proximally. Some eccentric calcification that is nonobstructive is seen in the left subclavian artery in the left subclavian artery image 23 measuring approximately 6 to 7 mm in diameter. Minimal nonobstructive calcification seen in the right subclavian artery and the right subclavian artery measures 6 to 7 mm in diameter. Dimensions that may be helpful for TAVR as as follows: Only minimal calcification is seen in the aortic root and remainder of the ascending thoracic aorta is free of calcification. The major and minor aortic annulus diameter measures 24.9 and 20.4 mm, respectively. The aortic annulus perimeter measured 73 mm and the cross-sectional area measures 416 mm2. The aortic annulus diameter at the traditional LVOT and coronal LVOT measures 21.4 and 22.3 mm, respectively. For reference purpose, per [employer] S3 brochure, recommendation are as follows: CT area between 273 to 345 mm2 (20 mm valve); 338 to 430 mm2 (23 mm valve); 430 to 546 mm2 (26 mm valve); 540 to 683 mm2 (29 mm valve). For reference purpose, per [employer] Evol[employer] R brochure, recommendation are as follows: CT perimeter between 56.5-62.8 mm (23 mm valve); 62.8-72.3 mm (26 mm valve); 72.3-81.7 mm (29 mm valve); and 81.7-94.2. mm (34 mm valve). Agatston Score is 1283. Planimetry, the aortic valve area is approximately 52 sq mm. The sinus of Valsalva height, RCC (systole): 13.0 mm The sinus of Valsalva height, LCC (systole): 11.3 mm The sinus of Valsalva diameter, RCC (systole): 26.9 mm The sinus of Valsalva diameter, LCC (systole): 29.4 mm The sinus of Valsalva diameter, NCC (systole): 29.4 mm The sinotubular junction measures approximately 24.5 x 25.1 mm The aortic root angulation measures 40.8 degrees. The angle of delivery is BELIZEAN 7 CLOUD INFRASTRUCTURE ARCHITECT 1. The minimal and perpendicular abdominal aortic diameter measure 15.4 and 16.4 mm, respectively. There is no evidence of thoracoabdominal aortic aneurysm or stent placement present. The minimum and the perpendicular left common iliac artery measures 8.9 and 9.8 mm, respectively with moderate tortuosity and no calcific atherosclerosis present. The minimum and the perpendicular left external iliac artery measures 6.2 and 7.3 mm, respectively with at least moderate tortuosity and no calcific atherosclerosis present. The minimum and the perpendicular left femoral artery measures 8.1 and 3.3 mm, respectively with no tortuosity and no calcific atherosclerosis present. The minimum and the perpendicular right common iliac artery measures 8.1 and 8.5 mm, respectively with minimal tortuosity and no calcific atherosclerosis present. The minimum and the perpendicular right external iliac artery measures 6.4 and 7.4 mm, respectively with at least moderate tortuosity and no calcific atherosclerosis present. The minimum and the perpendicular right femoral artery measures 6.9 and 8.2 mm, respectively with no tortuosity and no calcific atherosclerosis present. NONVASCULAR: The visualised thyroid gland appears unremarkable. Small hypodensity less than 1 cm is seen at image 50 of the right thyroid lobe, not clinically significant. In the lung windows, no obvious endobronchial lesion is seen and no pleural effusions identified. Calcified lymph nodes identified, indicating prior granulomatous disease. In the lung windows, no obvious endobronchial lesion is seen and no pleural effusions identified. Some dependent changes are seen. Some subsegmental atelectatic changes are noted. In the right apex, image 16, scarring/nodule is identified measure 6 mm in diameter. A 5 mm juxtapleural nodule is identified in the right upper lobe at image 77, and a tiny calcified granuloma is identified in the upper segment of the right lower lobe at image 155. No other nodule is seen. No prior examination is available for comparison. In the abdomen, the liver and spleen appears unremarkable. The liver edge is smooth. No abnormal enhancing structure is identified. A simple cyst is identified in the liver, with no enhancement after contrast administration. A splenule is present. The adrenal glands are unremarkable. Gallstones are seen in the gallbladder with no wall thickening identified. The pancreas appears unremarkable. No acute renal pathology is seen and no hydronephrosis or perirenal fluid collection is identified. Bowel is not well assessed by CT angiography as enteric contrast is not given. No obvious bowel dilation is identified. The bladder appears unremarkable. The uterus is present. No obvious abnormal adnexal masses seen though CT is not optimized in the assessment of pelvic gynecological structures. No acute bony pathology is seen. Some degenerative changes are noted. CONCLUSIONS: 1. Patient has a diagnosis of aortic stenosis. Aortic valve is tricuspid. Agatston score is over 1200. Aortic valve area is approximately 51 sq mm. No mitral annular calcification is seen. Only minimal calcification seen in the aortic root. Dimensions that may be helpful for TAVR as described above. 2. The central pulmonary artery is normal in calibre. Evidence of prior granulomatous disease. No acute pulmonary pathology is identified. Small pulmonary nodules are seen as described above. If no outside facility is available for comparison, one can consider follow-up examination in 6-12 months time to document stability. 3. Other findings as described above. 4. An addendum will be dictated by the [employer] Architect Radiologist regarding the nonvascular findings. Signed: Reed Stockton MD Report Verified Date/Time: 11/02/2017 16:59:26 Reading Location: [place] [address] Cardiology MRI * POC-Creatinine (11/02/2017 12:37 PM) Component Value Ref Range POC-Creatinine 1.0Comment: TESTED AT [address] 0.6 - 1.3 mg/[place] [address] POC-EGFR 55 mL/min/1.73M2 Specimen Performing Laboratory Blood [facility] [address] [address] after 04/12/2017
--- OUTSIDE RECORDS SUMMARY | 2018-04-13 06:04 | XMS REPORT ---
Author Author [facility] Address Unknown Phone Unavailable Care Team Providers Care Health And Safety Inspector Name Role Phone CLARKE DAMARISORTIZ Unavailable Unavailable YASMINE SHANNON Unavailable Unavailable RADHA CAVANAUGH Unavailable Unavailable Problems This patient has no known problems. Allergies, Adverse Reactions, Alerts This patient has no known allergies or adverse reactions. Medications This patient has no known medications. Results Test Description Test Time Test Comments Text Results Atomic Results Result Comments BASIC METABOLIC PANEL 2018-01-10 07:10:00 SODIUM (BEAKER) (test cdoa=076) 140 meq/L 136-145 POTASSIUM (BEAKER) (test dfqx=968) 4.1 meq/L 3.5-5.1 CHLORIDE (BEAKER) (test ozid=448) 109 meq/L 98-107 CO2 (BEAKER) (test ncfo=175) 23 meq/L 22-29 BLOOD UREA NITROGEN (BEAKER) (test jfkb=636) 21 mg/dL 7-21 CREATININE (BEAKER) (test spcd=645) 0.73 mg/dL 0.57-1.25 GLUCOSE RANDOM (BEAKER) (test cpsy=368) 90 mg/dL 70-105 CALCIUM (BEAKER) (test gjhd=944) 9.2 mg/dL 8.4-10.2 EGFR (BEAKER) (test ifgu=2122) 78 mL/min/1.73 sq m ESTIMATED GFR IS NOT ACCURATE CREATININE CLEARANCE IN PREDICTING GLOMERULAR FILTRATION RATE. ESTIMATED GFR IS NOT APPLICABLE FOR DIALYSIS PATIENTS. CBC W/PLT COUNT & AUTO [id number] 07:08:00* Test Item Value Reference Range Comments WHITE BLOOD CELL COUNT (BEAKER) (test nspz=694) 7.9 K/ L 3.5-10.5 RED BLOOD CELL COUNT (BEAKER) (test fqhb=803) 3.47 M/ L 3.93-5.22 HEMOGLOBIN (BEAKER) (test xsft=688) 10.5 GM/DL 11.2-15.7 HEMATOCRIT (BEAKER) (test zxsa=113) 32.3 % 34.1-44.9 MEAN CORPUSCULAR VOLUME (BEAKER) (test ifdi=042) 93.1 fL 79.4-94.8 MEAN CORPUSCULAR HEMOGLOBIN (BEAKER) (test tqxf=594) 30.3 pg 25.6-32.2 MEAN CORPUSCULAR HEMOGLOBIN CONC (BEAKER) (test zamo=986) 32.5 GM/DL 32.2- 35.5 RED CELL DISTRIBUTION WIDTH (BEAKER) (test fivl=009) 13.9 % 11.7-14.4 PLATELET COUNT (BEAKER) (test oxdq=730) 143 K/CU MM 150-450 MEAN PLATELET VOLUME (BEAKER) (test xucc=741) 10.7 fL 9.4-12.3 NUCLEATED RED BLOOD CELLS (BEAKER) (test fkbv=205) 0 /100 WBC 0-0 NEUTROPHILS RELATIVE PERCENT (BEAKER) (test xgio=055) 57 % LYMPHOCYTES RELATIVE PERCENT (BEAKER) (test avgw=445) 31 % MONOCYTES RELATIVE PERCENT (BEAKER) (test oteq=821) 8 % EOSINOPHILS RELATIVE PERCENT (BEAKER) (test bxcx=197) 4 % BASOPHILS RELATIVE PERCENT (BEAKER) (test cpfj=543) 1 % NEUTROPHILS ABSOLUTE COUNT (BEAKER) (test mskz=365) 4.50 K/ L 1.56-6.13 LYMPHOCYTES ABSOLUTE COUNT (BEAKER) (test bswh=332) 2.44 K/ L 1.18-3.74 MONOCYTES ABSOLUTE COUNT (BEAKER) (test ljav=665) 0.61 K/ L 0.24-0.36 EOSINOPHILS ABSOLUTE COUNT (BEAKER) (test fxop=141) 0.28 K/ L 0.04-0.36 BASOPHILS ABSOLUTE COUNT (BEAKER) (test tkwq=110) 0.08 K/ L 0.01-0.08 IMMATURE GRANULOCYTES-RELATIVE PERCENT (BEAKER) (test qlep=8299) 0 % 0-1 BASIC METABOLIC [id number] 06:28:00* Test Item Value Reference Range Comments SODIUM (BEAKER) (test kveh=538) 141 meq/L 136-145 POTASSIUM (BEAKER) (test diez=233) 4.3 meq/L 3.5-5.1 CHLORIDE (BEAKER) (test ovfi=236) 107 meq/L 98-107 CO2 (BEAKER) (test yowt=379) 24 meq/L 22-29 BLOOD UREA NITROGEN (BEAKER) (test lrzm=800) 22 mg/dL 7-21 CREATININE (BEAKER) (test znqi=723) 0.79 mg/dL 0.57-1.25 GLUCOSE RANDOM (BEAKER) (test vgag=197) 94 mg/dL 70-105 CALCIUM (BEAKER) (test hhxb=219) 9.9 mg/dL 8.4-10.2 EGFR (BEAKER) (test wtti=2445) 72 mL/min/1.73 sq m ESTIMATED GFR IS NOT ACCURATE CREATININE CLEARANCE IN PREDICTING GLOMERULAR FILTRATION RATE. ESTIMATED GFR IS NOT APPLICABLE FOR DIALYSIS PATIENTS. CBC W/PLT COUNT & AUTO [id number] 06:19:00* Test Item Value Reference Range Comments WHITE BLOOD CELL COUNT (BEAKER) (test zoqg=022) 9.1 K/ L 3.5-10.5 RED BLOOD CELL COUNT (BEAKER) (test fhrh=168) 3.75 M/ L 3.93-5.22 HEMOGLOBIN (BEAKER) (test tbys=471) 11.4 GM/DL 11.2-15.7 HEMATOCRIT (BEAKER) (test rhll=370) 34.7 % 34.1-44.9 MEAN CORPUSCULAR VOLUME (BEAKER) (test alfz=544) 92.5 fL 79.4-94.8 MEAN CORPUSCULAR HEMOGLOBIN (BEAKER) (test nalb=631) 30.4 pg 25.6-32.2 MEAN CORPUSCULAR HEMOGLOBIN CONC (BEAKER) (test gzzp=154) 32.9 GM/DL 32.2- 35.5 RED CELL DISTRIBUTION WIDTH (BEAKER) (test ejxg=532) 13.7 % 11.7-14.4 PLATELET COUNT (BEAKER) (test pove=286) 178 K/CU MM 150-450 MEAN PLATELET VOLUME (BEAKER) (test cyfl=680) 10.6 fL 9.4-12.3 NUCLEATED RED BLOOD CELLS (BEAKER) (test kkpp=100) 0 /100 WBC 0-0 NEUTROPHILS RELATIVE PERCENT (BEAKER) (test hmgm=796) 57 % LYMPHOCYTES RELATIVE PERCENT (BEAKER) (test iwwp=305) 32 % MONOCYTES RELATIVE PERCENT (BEAKER) (test givm=378) 6 % EOSINOPHILS RELATIVE PERCENT (BEAKER) (test gumm=088) 3 % BASOPHILS RELATIVE PERCENT (BEAKER) (test qjgo=477) 1 % NEUTROPHILS ABSOLUTE COUNT (BEAKER) (test fxct=220) 5.18 K/ L 1.56-6.13 LYMPHOCYTES ABSOLUTE COUNT (BEAKER) (test qckw=264) 2.91 K/ L 1.18-3.74 MONOCYTES ABSOLUTE COUNT (BEAKER) (test mcbl=494) 0.57 K/ L 0.24-0.36 EOSINOPHILS ABSOLUTE COUNT (BEAKER) (test xnvp=911) 0.30 K/ L 0.04-0.36 BASOPHILS ABSOLUTE COUNT (BEAKER) (test ssqe=420) 0.09 K/ L 0.01-0.08 IMMATURE GRANULOCYTES-RELATIVE PERCENT (BEAKER) (test vjdk=5175) 0 % 0-1 POCT-GLUCOSE [id number] 12:11:00* Test Item Value Reference Range Comments POC-GLUCOSE METER (BEAKER) (test fjpn=1913) 108 mg/dL 70-[address] [facility] [address] [facility] [address] HEMOGLOBIN [id number] 19:40:00* Test Item Value Reference Range Comments HEMOGLOBIN A1C (BEAKER) (test ynsn=723) 4.9 % 4.3-6.1 BASIC METABOLIC [id number] 06:33:00* Test Item Value Reference Range Comments SODIUM (BEAKER) (test hbfw=458) 139 meq/L 136-145 POTASSIUM (BEAKER) (test dwyy=311) 3.7 meq/L 3.5-5.1 CHLORIDE (BEAKER) (test mbln=039) 109 meq/L 98-107 CO2 (BEAKER) (test tygu=806) 22 meq/L 22-29 BLOOD UREA NITROGEN (BEAKER) (test wuna=962) 18 mg/dL 7-21 CREATININE (BEAKER) (test ohoh=342) 0.75 mg/dL 0.57-1.25 GLUCOSE RANDOM (BEAKER) (test iamh=153) 103 mg/dL 70-105 CALCIUM (BEAKER) (test lvqy=824) 9.0 mg/dL 8.4-10.2 EGFR (BEAKER) (test sedf=4633) 76 mL/min/1.73 sq m ESTIMATED GFR IS NOT ACCURATE CREATININE CLEARANCE IN PREDICTING GLOMERULAR FILTRATION RATE. ESTIMATED GFR IS NOT APPLICABLE FOR DIALYSIS PATIENTS. CBC (HEMOGRAM ONLY)2018-01-01 06:01:00* Test Item Value Reference Range Comments WHITE BLOOD CELL COUNT (BEAKER) (test ggva=207) 8.6 K/ L 3.5-10.5 RED BLOOD CELL COUNT (BEAKER) (test tpjx=010) 3.26 M/ L 3.93-5.22 HEMOGLOBIN (BEAKER) (test xzoa=030) 10.1 GM/DL 11.2-15.7 HEMATOCRIT (BEAKER) (test xhzu=050) 30.2 % 34.1-44.9 MEAN CORPUSCULAR VOLUME (BEAKER) (test mnlx=010) 92.6 fL 79.4-94.8 MEAN CORPUSCULAR HEMOGLOBIN (BEAKER) (test nwfk=499) 31.0 pg 25.6-32.2 MEAN CORPUSCULAR HEMOGLOBIN CONC (BEAKER) (test sycu=286) 33.4 GM/DL 32.2- 35.5 RED CELL DISTRIBUTION WIDTH (BEAKER) (test vezi=886) 13.4 % 11.7-14.4 PLATELET COUNT (BEAKER) (test trez=665) 85 K/CU MM 150-450 MEAN PLATELET VOLUME (BEAKER) (test gsqn=593) 10.5 fL 9.4-12.3 NUCLEATED RED BLOOD CELLS (BEAKER) (test tpgo=535) 0 /100 WBC 0-0 BASIC METABOLIC [id number] 05:43:00* Test Item Value Reference Range Comments SODIUM (BEAKER) (test cxcq=649) 140 meq/L 136-145 POTASSIUM (BEAKER) (test ymvy=649) 3.8 meq/L 3.5-5.1 CHLORIDE (BEAKER) (test zzmw=423) 109 meq/L 98-107 CO2 (BEAKER) (test tehv=187) 25 meq/L 22-29 BLOOD UREA NITROGEN (BEAKER) (test utaw=134) 10 mg/dL 7-21 CREATININE (BEAKER) (test gtmw=848) 0.76 mg/dL 0.57-1.25 GLUCOSE RANDOM (BEAKER) (test eiwf=775) 110 mg/dL 70-105 CALCIUM (BEAKER) (test bdlt=932) 9.3 mg/dL 8.4-10.2 EGFR (BEAKER) (test bybz=0613) 75 mL/min/1.73 sq m ESTIMATED GFR IS NOT ACCURATE CREATININE CLEARANCE IN PREDICTING GLOMERULAR FILTRATION RATE. ESTIMATED GFR IS NOT APPLICABLE FOR DIALYSIS PATIENTS. CBC (HEMOGRAM ONLY)2017-12-31 04:51:00* Test Item Value Reference Range Comments WHITE BLOOD CELL COUNT (BEAKER) (test jrux=671) 7.9 K/ L 3.5-10.5 RED BLOOD CELL COUNT (BEAKER) (test owwn=722) 3.22 M/ L 3.93-5.22 HEMOGLOBIN (BEAKER) (test teuk=572) 10.1 GM/DL 11.2-15.7 HEMATOCRIT (BEAKER) (test tkls=675) 29.9 % 34.1-44.9 MEAN CORPUSCULAR VOLUME (BEAKER) (test shyf=394) 92.9 fL 79.4-94.8 MEAN CORPUSCULAR HEMOGLOBIN (BEAKER) (test mirk=938) 31.4 pg 25.6-32.2 MEAN CORPUSCULAR HEMOGLOBIN CONC (BEAKER) (test vxxq=839) 33.8 GM/DL 32.2- 35.5 RED CELL DISTRIBUTION WIDTH (BEAKER) (test dlat=825) 13.4 % 11.7-14.4 PLATELET COUNT (BEAKER) (test ndfp=023) 82 K/CU MM 150-450 MEAN PLATELET VOLUME (BEAKER) (test fpcw=775) 9.9 fL 9.4-12.3 NUCLEATED RED BLOOD CELLS (BEAKER) (test etog=243) 0 /100 WBC 0-0 BASIC METABOLIC [id number] 04:54:00* Test Item Value Reference Range Comments SODIUM (BEAKER) (test skxu=211) 138 meq/L 136-145 POTASSIUM (BEAKER) (test nytz=523) 4.6 meq/L 3.5-5.1 CHLORIDE (BEAKER) (test irjc=785) 106 meq/L 98-107 CO2 (BEAKER) (test xihu=183) 25 meq/L 22-29 BLOOD UREA NITROGEN (BEAKER) (test cmch=082) 13 mg/dL 7-21 CREATININE (BEAKER) (test tqxa=132) 0.86 mg/dL 0.57-1.25 GLUCOSE RANDOM (BEAKER) (test kwsr=408) 108 mg/dL 70-105 CALCIUM (BEAKER) (test ohyc=437) 9.5 mg/dL 8.4-10.2 EGFR (BEAKER) (test bsln=7086) 65 mL/min/1.73 sq m ESTIMATED GFR IS NOT ACCURATE CREATININE CLEARANCE IN PREDICTING GLOMERULAR FILTRATION RATE. ESTIMATED GFR IS NOT APPLICABLE FOR DIALYSIS PATIENTS. CBC (HEMOGRAM ONLY)2017-12-30 04:22:00* Test Item Value Reference Range Comments WHITE BLOOD CELL COUNT (BEAKER) (test qtvw=337) 9.6 K/ L 3.5-10.5 RED BLOOD CELL COUNT (BEAKER) (test ewod=936) 3.67 M/ L 3.93-5.22 HEMOGLOBIN (BEAKER) (test mvxg=043) 11.2 GM/DL 11.2-15.7 HEMATOCRIT (BEAKER) (test nilh=389) 34.0 % 34.1-44.9 MEAN CORPUSCULAR VOLUME (BEAKER) (test owni=608) 92.6 fL 79.4-94.8 MEAN CORPUSCULAR HEMOGLOBIN (BEAKER) (test hfpu=455) 30.5 pg 25.6-32.2 MEAN CORPUSCULAR HEMOGLOBIN CONC (BEAKER) (test hlku=086) 32.9 GM/DL 32.2- 35.5 RED CELL DISTRIBUTION WIDTH (BEAKER) (test iuyn=994) 13.7 % 11.7-14.4 PLATELET COUNT (BEAKER) (test lvxx=703) 116 K/CU MM 150-450 MEAN PLATELET VOLUME (BEAKER) (test mrvr=383) 10.1 fL 9.4-12.3 NUCLEATED RED BLOOD CELLS (BEAKER) (test ikwk=488) 0 /100 WBC 0-0 [id number] 13:03:00* Test Item Value Reference Range Comments ACTIVATED CLOTTING TIME (BEAKER) (test ezep=460) [address] [facility] [address] [facility] [address] [id number] 10:52:00* Test Item Value Reference Range Comments ACTIVATED CLOTTING TIME (BEAKER) (test ivlx=227) [address] [facility] [address] [facility] [address] COMPREHENSIVE METABOLIC [id number] 07:26:00* Test Item Value Reference Range Comments TOTAL PROTEIN (BEAKER) (test phse=443) 7.4 gm/dL 6.0-8.3 ALBUMIN (BEAKER) (test oody=9172) 3.7 g/dL 3.5-5.0 ALKALINE PHOSPHATASE (BEAKER) (test myrh=771) 70 U/L 40-150 BILIRUBIN TOTAL (BEAKER) (test nnnc=809) 0.6 mg/dL 0.2-1.2 SODIUM (BEAKER) (test ivzp=877) 140 meq/L 136-145 POTASSIUM (BEAKER) (test bnde=658) 4.2 meq/L 3.5-5.1 CHLORIDE (BEAKER) (test vqgt=839) 108 meq/L 98-107 CO2 (BEAKER) (test bkji=521) 23 meq/L 22-29 BLOOD UREA NITROGEN (BEAKER) (test orli=134) 14 mg/dL 7-21 CREATININE (BEAKER) (test rmtw=394) 0.83 mg/dL 0.57-1.25 GLUCOSE RANDOM (BEAKER) (test kjyi=013) 106 mg/dL 70-105 CALCIUM (BEAKER) (test absw=433) 9.8 mg/dL 8.4-10.2 AST (SGOT) (BEAKER) (test ekji=567) 14 U/L 5-34 ALT (SGPT) (BEAKER) (test dawr=221) < U/L 6-55 EGFR (BEAKER) (test gfbh=6534) 68 mL/min/1.73 sq m ESTIMATED GFR IS NOT ACCURATE CREATININE CLEARANCE IN PREDICTING GLOMERULAR FILTRATION RATE. ESTIMATED GFR IS NOT APPLICABLE FOR DIALYSIS PATIENTS. B-TYPE NATRIURETIC FACTOR (BNP)2017-12-29 07:10:00* Test Item Value Reference Range Comments B-TYPE NATRIURETIC PEPTIDE (BEAKER) (test euxc=428) 37 pg/mL 0-100 CBC W/PLT COUNT & AUTO [id number] 07:04:00* Test Item Value Reference Range Comments WHITE BLOOD CELL COUNT (BEAKER) (test dyna=805) 6.6 K/ L 3.5-10.5 RED BLOOD CELL COUNT (BEAKER) (test tmzf=197) 4.00 M/ L 3.93-5.22 HEMOGLOBIN (BEAKER) (test gksx=735) 12.0 GM/DL 11.2-15.7 HEMATOCRIT (BEAKER) (test mdqo=865) 36.8 % 34.1-44.9 MEAN CORPUSCULAR VOLUME (BEAKER) (test jxpu=970) 92.0 fL 79.4-94.8 MEAN CORPUSCULAR HEMOGLOBIN (BEAKER) (test kyvh=206) 30.0 pg 25.6-32.2 MEAN CORPUSCULAR HEMOGLOBIN CONC (BEAKER) (test vfxd=650) 32.6 GM/DL 32.2- 35.5 RED CELL DISTRIBUTION WIDTH (BEAKER) (test ksdv=033) 13.5 % 11.7-14.4 PLATELET COUNT (BEAKER) (test buvs=734) 158 K/CU MM 150-450 MEAN PLATELET VOLUME (BEAKER) (test pjti=843) 10.3 fL 9.4-12.3 NUCLEATED RED BLOOD CELLS (BEAKER) (test ampf=854) 0 /100 WBC 0-0 NEUTROPHILS RELATIVE PERCENT (BEAKER) (test knrt=284) 53 % LYMPHOCYTES RELATIVE PERCENT (BEAKER) (test tddv=443) 35 % MONOCYTES RELATIVE PERCENT (BEAKER) (test vfpf=825) 8 % EOSINOPHILS RELATIVE PERCENT (BEAKER) (test ofdn=159) 3 % BASOPHILS RELATIVE PERCENT (BEAKER) (test ipxy=073) 1 % NEUTROPHILS ABSOLUTE COUNT (BEAKER) (test qcne=377) 3.50 K/ L 1.56-6.13 LYMPHOCYTES ABSOLUTE COUNT (BEAKER) (test rtgk=164) 2.29 K/ L 1.18-3.74 MONOCYTES ABSOLUTE COUNT (BEAKER) (test ouof=081) 0.52 K/ L 0.24-0.36 EOSINOPHILS ABSOLUTE COUNT (BEAKER) (test wnfe=263) 0.22 K/ L 0.04-0.36 BASOPHILS ABSOLUTE COUNT (BEAKER) (test kshc=191) 0.06 K/ L 0.01-0.08 IMMATURE GRANULOCYTES-RELATIVE PERCENT (BEAKER) (test vafn=9940) 1 % 0-1 PROTHROMBIN TIME/[id number] 06:59:00* Test Item Value Reference Range Comments PROTIME (BEAKER) (test jbrb=529) 14.1 seconds 11.7-14.7 INR (LO) (test jftt=599) 1.1 <=5.9 RECOMMENDED COUMADIN/WARFARIN INR THERAPY RANGESSTANDARD DOSE: 2.0 - 3.0 Includes: PROPHYLAXIS for venous thrombosis, systemic embolization; TREATMENT for venous thrombosis and/or pulmonary embolus.HIGH RISK: Target INR is 2.5-3.5 for patients with mechanical heart valves.CT, CTA, [id number] 14:51: 00Addendum BeginsREPORT STATUS:A Addendum: November 03, 2017 at 1455 hours I have reviewed the CT images for this study and I concur with the nonvascular imaging findings as dictated. Signed: Rolando Lowry Verified Date/Time: 11/03/2017 14:51:20 Reading Location: [place] [address] Angio Body Reading RoomAddendum EndsFINAL REPORT CT angiography of the thoracoabdominal aorta [...] chambers. In the topogram, this represents a dual- chamber pacemaker. The central pulmonary artery is normal [...] annulus perimeter measured 73 mm and the cross -sectional area measures 416 mm2. The aortic annulus [...] 62.8-72.3 mm (26 mm valve); 72.3-81.7 mm ( 29 mm valve); and 81.7-94.2. mm (34 mm valve). Agatston Score is 1283. Planimetry, the aortic valve area is approximately 52 sq mm. The sinus of Valsalva height, RCC (systole): 13.0 mmThe sinus of Valsalva height, LCC ( systole): 11.3 mm The sinus of Valsalva diameter, RCC (systole): 26.9 mmThe sinus of Valsalva diameter, LCC (systole): 29.4 mmThe sinus of Valsalva diameter , NCC (systole): 29.4 mm The sinotubular junction measures approximately 24.5 x 25.1 mm The aortic root angulation measures 40.8 degrees. The angle of delivery is KINYARWANDA 7 BOTTOM WHEELER 1. The minimal and perpendicular abdominal aortic [...] An addendum will be dictated by the Licensed Final Expense Agents Radiologist regarding the nonvascular findings. Signed: Reed Stockton MDReport Verified Date/Time: 16:59:26 Reading Location: [place] [address] Cardiology MRI , CTA [id number] 14:51:00Addendum BeginsREPORT STATUS:A Addendum: November 03, 2017 at 1455 hours I have reviewed the CT images for this study and I concur with the nonvascular imaging findings as dictated. Signed: Rolando Lowry MDReport Verified Date/Time: 11/03/2017 14:51:20 Reading Location: [place] [id number] Angio Body Reading RoomAddendum EndsFINAL REPORT CT angiography of the thoracoabdominal aorta and pelvic arteries , 02 November 2017 INDICATION: This is a [...] sinus of Valsalva height, RCC (systole): 13.0 mmThe sinus of Valsalva height, LCC (systole): 11.3 mm The sinus of Valsalva diameter , RCC (systole): 26.9 mmThe sinus of Valsalva diameter, LCC (systole): 29.4 mmThe sinus of Valsalva diameter, NCC (systole): 29.4 mm The sinotubular junction measures approximately 24.5 x 25.1 mm The aortic root angulation measures 40.8 degrees. The angle of delivery is KINYARWANDA 7 BOTTOM WHEELER 1. The minimal and perpendicular abdominal aortic [...] An addendum will be dictated by the Licensed Final Expense Agents Radiologist regarding the nonvascular findings. Signed: Reed Stocktoneport Verified Date/Time: 16:59:26 Reading Location: [place] [address] Cardiology MRI - [id number] 12:40:00* Test Item Value Reference Range Comments POC-CREATININE (LO) (test iwof=4063) 1.0 mg/dL 0.6-1.[address] [facility] [address] [facility] [address] POC-EGFR (LO) (test sbzr=0643) 55 mL/min/1.73M2 CHEST [address] [facility] [address] [place] [address] Patient Name: JORDEN LANGLEY MR # : [id number] : 1945 Age/Sex: 72/F Req #: [id number] Adm Physician: Ordered by: YARON FONSECA MD Report #: [id number] Location: OR Room/Bed: Procedure: [id number] DX/CHEST 2 VIEWS Exam Date: 04/11/18 Exam Time : 1210 REPORT STATUS: Signed PROCEDURE: X-RAY CHEST, TWO VIEWS COMPARISON: None. INDICATIONS: PRE OPERATIVE CHEST X-RAY FOR UROLOGY FINDINGS: No focal airspace consolidation, pleural effusion, or pneumothorax. Left subclavian approach implantable cardiac device body projects over the left lateral chest wall. Leads project over the right atrium and right ventricle. Aortic valve prosthesis. Normal heart size. Tortuosity and atherosclerotic calcification of the thoracic aorta. No pulmonary edema. No acute osseous abnormality. CONCLUSION: No acute cardiopulmonary abnormality. Dictated by: Joe Gomez M.D. on 04/11/2018 at 12:43 Electronically approved by: Joe Gomez M.D. on at 12:43 Dictated By: JOE GOMEZ MD 1243 Transcribed By: CLAUDIA on 04/11/18 1243 COPY TO: YARON FONSECA MD
--- OUTSIDE RECORDS SUMMARY | 2018-04-13 06:04 | XMS REPORT | Clinical Summary ---
Author Author [facility] Organization [facility] Address Unknown Phone Unavailable Care Team Providers Care Slasher Tender Name Role Phone Clovis Couch MD PCP Unavailable Allergies No Known Allergies Current Medications Prescription Sig. Disp. Refills Start End Date Status Date GENERLAC 10 gram/15 mL 15 mL daily. 5 10/18/20 Active solution 16 potassium chloride 1 tablet as needed. 1 10/27/20 Active (K-DUR) 20 MEQ CR tablet 16 furosemide (LASIX) 40 mg 1 tablet as needed. 1 10/27/20 Active tablet 16 MULTIVITAMIN ORAL Take 1 tablet by mouth Active daily. VITAMIN B COMPLEX (B Take 1 tablet by mouth Active COMPLEX ORAL) daily. cholecalciferol, vitamin Take 1,000 Units by mouth Active D3, (VITAMIN D3) 1,000 daily. unit capsule carbidopa-levodopa Take 1 po @ 5am, 1 @ 90 tablet 5 11/02/20 Active (SINEMET) 25-100 mg per 10am, 1 @ 3pm 16 tablet lisinopril 1 tablet daily. 0 12/09/19 Active (PRINIVIL,ZESTRIL) 10 mg 17 tablet Active Problems Problem Noted Date Essential tremor 02/01/2017 Idiopathic peripheral neuropathy 02/01/2017 Orthostatic hypotension 02/01/2017 Anxiety 02/01/2017 Chronic right-sided low back pain without sciatica 12/02/2016 Tremor 11/02/2016 Parkinson's disease 11/02/2016 Encounters Date Type Specialty Care Team Description 06/04/2017 Refill Neurology Jo Ann Reyna MD after 04/12/2017 Family History Medical History Relation Name Comments No Known Problems Father Hyperlipidemia Mother Stroke Mother Relation Name Status Comments Father Mother (Age 70) Social History Tobacco Use Types Packs/Day Years Used Date Never Smoker Alcohol Use Drinks/Week oz/Week Comments No Sex Assigned at Date Recorded Not on file Last Filed Vital Signs Not on file Plan of Treatment Health Maintenance Due Date Last Done Comments BREAST CANCER SCREENING 1995 COLON CANCER SCREENING 1995 SHINGRIX VACCINE (#1) 1995 ZOSTER VACCINE 2005 PNEUMOCOCCAL 2010 POLYSACCHARIDE VACCINE AGE 65 AND OVER PNEUMOCOCCAL-13 2010 INFLUENZA VACCINE 06/20/2018 Results Not on fileafter 04/12/2017 Insurance Payer Benefit Subscriber ID Type Phone Address Plan / Group MEDICARE MEDICARE xxxxxxxxxx Medicare [place], [place] PART A AND B MEDICAID MEDICAID xxxxxxxxx Medicaid
--- NOTE | 2018-04-13 08:20 | Operative Report ---
DATE OF PROCEDURE: April 13, 2018 PREOPERATIVE DIAGNOSES 1. Multiple chronic urinary tract infections. 2. Clinical signs and symptoms of interstitial cystitis without hematuria. POSTOPERATIVE DIAGNOSES 1. Multiple chronic urinary tract infections. 2. Clinical signs and symptoms of interstitial cystitis without hematuria. 3. Grade-2 cystocele. 4. Severe senile atrophic vaginitis. PROCEDURES 1. Cystourethroscopy with hydrodistention (entirely separate procedure for diagnosis of clinical symptoms of interstitial cystitis). 2. Cystourethroscopy with bilateral ureteral catheterization and bilateral retrograde pyelograms (entirely separate procedure for clinical diagnosis of urinary tract infections). 3. Supervision of fluoroscopy. 4. Interpretation of retrograde ureteropyelography. ANESTHESIA: General. ESTIMATED BLOOD LOSS: Minimal. COMPLICATIONS: None. INDICATIONS: Ms. Peter is a very pleasant, 72-year-old female with a history of multiple chronic urinary tract infections. She and I had a long discussion regarding the alternatives, risks and benefits, including doing nothing, cystoscopy, IVP, retrograde pyelograms or ultrasound. She voiced an understanding of the options, the alternatives, the risks and benefits due to nephrotoxic dye, and she elected to proceed with retrograde pyelograms and hydrodistention. She voiced an understanding of the options and elected to proceed. PROCEDURE IN DETAIL: After informed consent was obtained, the patient was taken to the operating suite. She was placed supine on the operating table. She underwent general anesthesia by the anesthesia service. A time out was taken. The patient had been given prophylactic antibiotics. She was sterilely prepped and draped in the standard fashion for cystoscopy. A brief external examination revealed severe atrophic vaginitis with multiple areas of excoriation and cracking in the vagina, especially on the posterior fornix. The urethra was catheterized with a 22.5-Malian cystoscope, and panendoscopy of the bladder revealed no tumors and no stones. There was squamous metaplasia of the trigone. Both ureteral orifices were in their normal anatomic location and position and were seen to efflux clear urine. Bilateral retrograde pyelograms were performed, which were normal. The bladder was then hydrodistended in the standard fashion and revealed a capacity of 800 mL. No glomerulations and no Hunner ulcers. The bladder was drained. The patient was awakened from anesthesia and transported to the recovery room in excellent condition. SUPERVISION OF FLUOROSCOPY AND INTERPRETATION OF RETROGRADE URETEROPYELOGRAPHY: I was present throughout the entire procedure and supervised the use of fluoroscopy. There was no radiologist present at any time during the procedure. Attention was turned toward the left and right ureteral orifices, which were catheterized with an 8-Malian, cone-tip catheter in a retrograde fashion. Contrast was injected, revealing delicate ureters and delicate pelvicaliceal systems. No evidence of filling defects. No evidence of hydronephrosis. IMPRESSION: Normal retrograde pyelograms. Job#: [id number]
== END | disposition home or self-care (01) ==
LOC: OR 06:01
PROVIDERS: ATTEND Urology
DX: N39.0 Urinary tract infection, site not specified (principal); N39.46 Mixed incontinence; N81.10 Cystocele, unspecified; N95.2 Postmenopausal atrophic vaginitis; S30.814A Abrasion of vagina and vulva, initial encounter; G20 Parkinson's disease; I10 Essential (primary) hypertension; X58.XXXA Exposure to other specified factors, initial encounter; Z88.2 Allergy status to sulfonamides; Z01.818 Encounter for other preprocedural examination; Z79.82 Long term (current) use of aspirin; Z79.02 Long term (current) use of antithrombotics/antiplatelets; Z68.34 Body mass index [BMI] 34.0-34.9, adult; Z95.0 Presence of cardiac pacemaker; Z95.2 Presence of prosthetic heart valve
CPT/HCPCS: 52005; 71046; 74420; C1758; J0696; J1100; J2001; J2405; Q9967